=== PATIENT | male | born 1940 | race Caucasian/White ===

== ENCOUNTER → 2021-03-18 10:49 | Outpatient (CLI) | payer MEDICARE, SELFPAY ==
[2021-03-18 21:59] LABS: COVID19 - ORCAS (NP or Nasal) Negative (Negative)
== END ==
PROVIDERS: Visit Provider Physician Assistant Medical
DX: Z20.822 Contact with and (suspected) exposure to COVID-19 (principal)
CPT/HCPCS: U0003